=== PATIENT | male | born 1990 | race Caucasian/White ===

== ENCOUNTER 2018-08-22 12:39 | Day surgery (SDC) | payer BC, MEDICAID ==
--- NOTE | 2018-08-14 15:53 | HPN ---
Date/Time of Note Date/Time of Note DATE: 08/14/18 TIME: 15:53 Interval H&P Admission Note Pt. seen H&P reviewed: No system changes LINDSEY PINEDA Aug 14, 2018 15:53
[~2018-08-22] VITALS: Ht 180.3 cm; Wt 70.3 kg
[2018-08-22] VITALS (15 sets, daily range): BP systolic 95–127; BP diastolic 48–79; PULSE 52–76; RESP 10–19; Ht 180.3 cm; Wt 70.3 kg
[2018-08-22] MEDS ORDERED: LACTATED RINGER'S 1,000 ML IV SCH (14:00)
--- NOTE | 2018-08-22 14:32 | PREAC ---
Date/Time of Note Date/Time of Note DATE: 08/22/18 TIME: 14:28 Anesthesia Eval and Record Evaluation Time Pre-Procedure Interview DATE: 08/22/18 TIME: 14:28 Age 27 Sex male NPO: 8 hrs Preoperative diagnosis right ring finger metacarpal shaft fx Planned procedure orif right ring finger metacarpal shaft Past Medical History Past Medical History: Includes Recreational drugs: Marijuana (regular MJ use), Other (regular etoh use) Surgery & Anesthesia Issues No known issue Meds Anticoagulation: No Beta Yina within 24 hr: No Reason Beta Yina not given: Pt. not on B-Yina No Active Prescriptions or Reported Meds Current Medications Lactated Ringer's 1,000 ml @ 25 mls/hr Q24H IV ; Start 08/22/18 at 14:00 Meds reviewed: Yes (estrogen for hormone therapy) Allergies Coded Allergies: No Known Allergy (Verified , 08/22/18) Allergies Reviewed: Yes Labs/Studies Labs Reviewed: Reviewed by anesthesiologist test: N/A Pre-procedure Exam Last vitals Vital Signs Date Temp Pulse Resp B/P (MAP) Pulse Ox O2 O2 Flow FiO2 Time Delivery Rate 08/22/18 98.8 76 16 122/72 95 Room Air 13:05 (89) Airway: Adequate mouth opening, Adequate thyromental dist Mallampati: Mallampati II Teeth: Normal Lung: Normal Heart: Normal ASA Physical Status ASA physical status: 2 Emergency: None Planned Anesthetic General/MAC: LMA Nerve block: Brachial plexus (right) Planned Pain Management Single shot nerve block, Parenteral pain med Pre-operative Attestations Prior to commencing anesthesia and surgery, the patient was re-evaluated, there was verification of: *The patient's identity *The results of appropriate recent lab work and preoperative vital signs *The above evaluation not changing prior to induction *Anesthetic plan, risk benefits, alternative and complications discussed with patient/family; questions answered; patient/family understands, accepts and wishes to proceed. WONG FLORES CRNA August 22, 2018 14:32
[2018-08-22] MEDS ORDERED: LIDOCAINE 2% (SDV) 5 ML INJ ONE (14:56)
[2018-08-22] MEDS ORDERED: MIDAZOLAM 1 MG/ML 2 ML INJ ONE ×2 (14:56→15:21)
[2018-08-22] MEDS ORDERED: PROPOFOL 20 ML ONE ×2 (14:56→15:22)
[2018-08-22] MEDS ORDERED: POLYMYXIN/BACITRACIN 1L IRRIG ONE (14:59)
[2018-08-22] MEDS ORDERED: ROPIVACAINE 0.5 % 30 ML VIAL ONE (15:00)
[2018-08-22] MEDS ORDERED: FENTAnyl 50 MCG/ML VIAL IV PRN ×3 (15:00)
[2018-08-22] MEDS ORDERED: PROCHLORPERAZINE 10 MG INJ IV PRN (15:00)
[2018-08-22] MEDS ORDERED: MEPERIDINE 25 MG INJ IV PRN (15:00)
[2018-08-22] MEDS ORDERED: ONDANSETRON 4 MG INJ IV PRN (15:00)
[2018-08-22] MEDS ORDERED: OXYCODONE/ACETAMINOPHEN (5/325) TAB PO PRN (15:00)
[2018-08-22] MEDS ORDERED: HYDROmorphONE 1 MG/5 ML IV SYRINGE IV PRN ×3 (15:00)
[2018-08-22] MEDS ORDERED: DIPHENHYDRAMINE 50 MG INJ IV PRN (15:00)
[2018-08-22] MEDS ORDERED: FENTAnyl 50 MCG/ML VIAL ONE (15:16)
[2018-08-22] MEDS ORDERED: ONDANSETRON 4 MG INJ ONE (15:23)
[2018-08-22] MEDS ORDERED: CEFAZOLIN 1 GM INJ ONE (15:23)
[2018-08-22] MEDS ORDERED: FAMOTIDINE 20 MG INJ ONE (15:23)
[2018-08-22] MEDS ORDERED: DEXAMETHASONE 4 MG/ML 5 ML INJ ONE (15:23)
[2018-08-22] MEDS ORDERED: HYDROmorphONE 2 MG/ML SYG ONE (15:36)
--- NOTE | 2018-08-22 16:10 | OPPN ---
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
--- NOTE | 2018-08-22 16:20 | PAC ---
Date/Time of Note Date/Time of Note DATE: 08/22/18 TIME: 16:20 Post-Anesthesia Notes Post-Anesthesia Note Last documented vital signs Vital Signs Date Temp Pulse Resp B/P (MAP) Pulse Ox O2 O2 Flow FiO2 Time Delivery Rate 08/22/18 98.0 16:14 08/22/18 76 16 122/72 95 Room Air 13:05 (89) Activity: WNL Respiratory function: WNL Cardiovascular function: WNL Mental status: Baseline Pain reasonably controlled: Yes Hydration appropriate: Yes Nausea/Vomiting absent: Yes Comments BP: 109/54 HR: 63 RR: 15 T: 98 SaO2: 100% FREEDOM BURNS MD August 22, 2018 16:20
--- NOTE | 2018-08-22 19:11 | OPR ---
DATE OF OPERATION: 08/22/2018 ANESTHESIA: General plus peripheral nerve block. PREOPERATIVE DIAGNOSIS: Right ring finger metacarpal shaft fracture, displaced, transverse. POSTOPERATIVE DIAGNOSIS: Right ring finger metacarpal shaft fracture, displaced, transverse. PROCEDURE: Open reduction internal fixation right ring finger metacarpal shaft fracture, displaced. OPERATIVE FINDINGS: Displaced right ring finger metacarpal shaft fracture. INDICATION FOR PROCEDURE: A 27-year-old male with injury to the right-handed, who was seen in clinic and diagnosed with a displaced fracture of the ring finger metacarpal shaft. Options were discussed . The patient elected to proceed with surgical intervention, understanding the risks and benefits. DESCRIPTION OF PROCEDURE: The patient was seen in the preoperative area and all further questions we re answered. Again, he gave informed consent understanding the risks and benefits. He was taken to OR suite and placed in the supine position. The anesthesia team performed a peripheral nerve block a nd the patient was placed under general anesthesia. Two grams Ancef IV given, and tourniquet placed in the right upper extremity. Right upper extremity was prepped with ChloraPrep stick and draped in usual sterile fashion. Esmarch bandage was used to exsanguinate extremity and tourniquet inflated to 250 mmHg. A longitudinal incision over the dorsal aspect of the ring finger metacarpal was utilized with sharp dissection carried down through skin and subcutaneous tissue. The extensor tendons were identified and were retracted and protected. The metacarpal shaft was visualized and there was a dis placed fracture. The fracture was mobilized using Dix elevator as well as 15 blade knife, rongeur and a curet. After adequate debridement and mobilization of the fracture fragments, the fracture was brought into a more anatomic position. A [employer] 2.0 mm hand plate was placed across the dorsal as pect of the right ring finger metacarpal and cortical and locking screws were placed proximally and d istally. X-ray imaging showed appropriate hardware placement and bony alignment. Wound was copiousl y irrigated. Skin closed with 5-0 nylon. Xeroform was placed in the wound followed by sterile gauze , Webril, and a short arm ulnar gutter splint. Tourniquet deflated after 25 minutes. The patient wa s awakened from anesthesia. He was taken the postoperative suite in stable condition, tolerated proc edure well without complication. SPECIMENS: None. ESTIMATED BLOOD LOSS: 5 mL. COUNTS: Sponge, instrument, needle counts correct. TOURNIQUET TIME: 25 minutes. CONDITION ON DISCHARGE: Stable. The patient was given a refill of nonrefillable 5-day prescription for pain medication surgery today. Dictated By: LINDSEY TUCKER/KARLO Conf#: [id number] DID#: [id number]
== END 2018-08-22 17:54 | disposition home or self-care (01) ==
LOC: SDS 12:39
PROVIDERS: ATTEND Orthopaedic Surgery Hand Surgery
DX: S62.324D Displaced fracture of shaft of fourth metacarpal bone, right hand, subsequent encounter for fracture with routine healing (principal); X58.XXXD Exposure to other specified factors, subsequent encounter
CPT/HCPCS: 26615; 73130; J0690; J1100; J1170; J2250; J2405; J2795; J3010; Z7512; Z7610